=== PATIENT | female | born 1930 | race Caucasian/White ===

== ENCOUNTER 2018-08-02 10:03 | Outpatient (CLI) | payer MEDICARE ==
[2018-08-02 10:25] LABS: ABG BASE EXCESS 5.5 mmol/L; ABG OXYGEN SATURATION 93.1 % (92.0-98.5); ABG PCO2 44.3 mmHg (35.0-45.0); ABG PH 7.453 (7.350-7.450); AaDO2 28.7 mmHg; COHb 0.9 % (0.5-1.5); MetHb 0.4 % (0.0-1.5); O2Hb 91.9 % (94.0-97.0); SITE, ABG Right Brachial; VENT MODE, BG room air
== END 2018-08-02 23:59 | disposition home or self-care (01) ==
LOC: LAB 10:03
PROVIDERS: ATTEND Internal Medicine Pulmonary Disease
DX: R09.02 Hypoxemia (principal)
CPT/HCPCS: 36600; 82803-TC